=== PATIENT | female | born 1940 | race Caucasian/White ===

== ENCOUNTER → 2016-10-16 | Outpatient (CLI) | payer MEDICARE ==
[~2016-10-16] VITALS: Ht 162.6 cm; Wt 82.1 kg
[2016-10-16 15:50] LABS: BUN/CREATININE RATIO 27 (0-10)
== END ==
LOC: OPSV 13:00
PROVIDERS: Podiatrist Foot & Ankle Surgery
DX: Z45.2 Encounter for adjustment and management of vascular access device (principal); L97.529 Non-pressure chronic ulcer of other part of left foot with unspecified severity
CPT/HCPCS: 80048; 96365; J0696

== ENCOUNTER → 2016-10-23 | Outpatient (CLI) | payer MEDICARE ==
[~2016-10-23] VITALS: Ht 162.6 cm; Wt 83.5 kg
== END ==
LOC: OPSV 11:00
DX: Z45.2 Encounter for adjustment and management of vascular access device (principal); L03.116 Cellulitis of left lower limb; T82.49XA Other complication of vascular dialysis catheter, initial encounter
CPT/HCPCS: 96374; J2997

== ENCOUNTER 2016-11-09 14:13 | Emergency (ER) | payer MEDICARE | END 2016-11-09 17:15 | disposition home or self-care (01) | LOC: ER1 14:13 | DX: L89.523 Pressure ulcer of left ankle, stage 3 (principal); L03.116 Cellulitis of left lower limb; G89.29 Other chronic pain; I10 Essential (primary) hypertension; Z79.02 Long term (current) use of antithrombotics/antiplatelets; Z79.899 Other long term (current) drug therapy | CPT/HCPCS: 96374; 96375; 99283; J2270; J2405 ==

== ENCOUNTER → 2016-11-09 | Outpatient (CLI) | payer MEDICARE ==
[2016-11-09 14:06] LABS: HEMOGLOBIN 10.3 gm/dl (12.3-15.3); RED BLOOD COUNT 3.49 M/UL (4.00-5.10); WHITE BLOOD COUNT 7.8 K/UL (4.5-11.0)
== END ==
LOC: OPSV 11:00
PROVIDERS: Internal Medicine Infectious Disease
DX: S91.031D Puncture wound without foreign body, right ankle, subsequent encounter (principal)
CPT/HCPCS: 36592; 80053; 85025; 86140; 87070; 87077; 87186; 87205; 96365; G0463; J0692; J7050